=== PATIENT | female | born 1945 | race African-American/Black ===

== ENCOUNTER 2017-09-17 09:37 | Emergency (ER) | payer MEDICARE, MEDICAID ==
[~2017-09-17] VITALS: Ht 162.6 cm; Wt 95.0 kg
[~2017-09-17 09:37] MED LIST: DILT240C3 PO; FURO40TA5 PO; LAMO25TA4 PO; PHEN100C12 PO; PHEN97.22 PO; POTA10TA11 PO
[2017-09-17] MEDS ORDERED: ACETAMINOPHEN 325MG TABLET PO STA (10:09)
[2017-09-17] MEDS ORDERED: FAMOTIDINE 20MG/2ML VIAL IV ONE (10:15)
[2017-09-17 10:33] LABS: EOSINOPHILS % 4.1 % (0.0-5.0); HEMATOCRIT. 41.5 % (36.0-48.0); HEMOGLOBIN. 13.4 g/dL (12.0-16.0); LYMPHOCYTES % 28.9 % (20.0-50.0); MEAN CORPUSCULAR HEMOGLOBIN 28.5 pg (28.0-32.0); MEAN CORPUSCULAR VOLUME 88.7 fL (81.0-99.0); MEAN PLATELET VOLUME 7.3 fl (7.4-10.4); MONOCYTES % 9.3 % (2.0-8.0); NEUTROPHILS % 56.7 % (40.0-76.0); PLATELET 295 x1000/uL (130-400); RED BLOOD CELL COUNT 4.68 mill/uL (4.2-5.4); RED CELL DISTRIBUTION WIDTH 14.2 % (11.6-14.6)
[2017-09-17 10:48] LABS: CARBON DIOXIDE 33 mEq/L (21-32); CHLORIDE 102 mEq/L (98-107)
[2017-09-17] MEDS ORDERED: AZITHROMYCIN 500 MG in DEXT 5% WATER 250 ML IV ONE (11:00)
[2017-09-17] MEDS ORDERED: PHENYTOIN SODIUM 500 MG in SODIUM CHLORIDE 0.9% 50 ML IV NR (11:30)
[2017-09-17 13:00] LABS: CLARITY URINE CLEAR (CLEAR); COLOR URINE YELLOW (YELLOW); KETONES URINE NEGATIVE (NEGATIVE); LEUKOCYTE ESTERASE URINE NEGATIVE (NEGATIVE); NITRITE URINE NEGATIVE (NEGATIVE); OCCULT BLOOD URINE NEGATIVE (NEGATIVE); PROTEIN URINE NEGATIVE (NEGATIVE); SPECIFIC GRAVITY URINE 1.011 (1.005-1.030); UROBILINOGEN URINE 0.2 E.U./dL (0.2-1.0)
[2017-09-17 15:37] VITALS: BP 135/65
== END 2017-09-17 15:38 | disposition home or self-care (01) ==
LOC: ER 10:58
DX: G40.409 Other generalized epilepsy and epileptic syndromes, not intractable, without status epilepticus (principal); G89.29 Other chronic pain; R10.84 Generalized abdominal pain; I10 Essential (primary) hypertension
CPT/HCPCS: 36415; 71010; 80053; 80185; 81003; 83690; 85025; 96365; 96375; 99285; J1165; J3490; J7030

== ENCOUNTER 2018-10-12 12:44 | Inpatient (IN) | payer MEDICARE, MEDICAID ==
[~2018-10-12] VITALS: Ht 162.6 cm; Wt 94.8 kg
[2018-10-12 15:10] LABS: CHLORIDE 102 mEq/L (98-107)
[2018-10-12 15:11] LABS: INR 1.1; PARTIAL THROMBOPLASTIN TIME 27.3 sec (23.4-31.0); PROTHROMBIN TIME 11.2 sec (9.1-11.1)
[2018-10-12 15:12] LABS: BASOPHILS % 0.3 % (0.0-2.0); EOSINOPHILS % 0.8 % (0.0-5.0); HEMATOCRIT. 43.1 % (36.0-48.0); HEMOGLOBIN. 13.9 g/dL (12.0-16.0); LYMPHOCYTES % 23.7 % (20.0-50.0); MEAN CORPUSCULAR HEMOGLOBIN 29.1 pg (28.0-32.0); MEAN CORPUSCULAR VOLUME 90.4 fL (81.0-99.0); MEAN PLATELET VOLUME 8.1 fl (7.4-10.4); MONOCYTES % 7.9 % (2.0-8.0); NEUTROPHILS % 67.3 % (40.0-76.0); PLATELET 201 x1000/uL (130-400); RED BLOOD CELL COUNT 4.77 mill/uL (4.2-5.4); RED CELL DISTRIBUTION WIDTH 14.3 % (11.6-14.6)
[2018-10-12 15:15] LABS: ETHANOL BLOOD < 10 mg/dL
[2018-10-12 15:16] LABS: CLARITY URINE CLEAR (CLEAR); COLOR URINE YELLOW (YELLOW); KETONES URINE NEGATIVE (NEGATIVE); LEUKOCYTE ESTERASE URINE NEGATIVE (NEGATIVE); NITRITE URINE NEGATIVE (NEGATIVE); OCCULT BLOOD URINE NEGATIVE (NEGATIVE); PH URINE 6.5 (4.5-8.0); PROTEIN URINE NEGATIVE (NEGATIVE); SPECIFIC GRAVITY URINE 1.005 (1.005-1.030); UROBILINOGEN URINE 0.2 E.U./dL (0.2-1.0)
[2018-10-12 15:19] LABS: CREATINE KINASE 34 IU/L (26-192)
[2018-10-12] MEDS ORDERED: ACETAMINOPHEN 325MG TABLET PO ONE (15:30)
[2018-10-12 15:31] LABS: *AMPHETAMINES SCREEN URINE NEGATIVE (NEGATIVE); *BARBITURATES SCREEN URINE NEGATIVE (NEGATIVE); *BENZODIAZEPINES SCREEN URINE NEGATIVE (NEGATIVE); *COCAINE SCREEN URINE NEGATIVE (NEGATIVE); METHADONE URINE SCREEN NEGATIVE (NEGATIVE); OPIATES URINE SCREEN PRESUMTIVE POSITIVE (NEGATIVE)
[2018-10-12 15:32] LABS: CANNABINOID URINE SCREEN NEGATIVE (NEGATIVE); PHENCYCLIDINE URINE SCREEN NEGATIVE (NEGATIVE)
[2018-10-12] MEDS ORDERED: PHENYTOIN SODIUM 1,000 MG in SODIUM CHLORIDE 0.9% 100 ML IV ONE (15:45)
[2018-10-12 20:00] VITALS: BP 120/65
[2018-10-12] MEDS ORDERED: CLONIDINE 0.1MG TABLET PO PRN (21:45)
[2018-10-12] MEDS: ACETAMINOPHEN 325MG TABLET PO PRN (22:48)
[2018-10-13] VITALS: BP 119/61
[2018-10-13 07:35] LABS: BASOPHILS % 0.4 % (0.0-2.0); EOSINOPHILS % 1.6 % (0.0-5.0); HEMATOCRIT. 41.4 % (36.0-48.0); HEMOGLOBIN. 13.6 g/dL (12.0-16.0); LYMPHOCYTES % 25.7 % (20.0-50.0); MEAN CORPUSCULAR VOLUME 88.2 fL (81.0-99.0); MEAN PLATELET VOLUME 7.5 fl (7.4-10.4); MONOCYTES % 9.9 % (2.0-8.0); NEUTROPHILS % 62.4 % (40.0-76.0); PLATELET 232 x1000/uL (130-400); RED CELL DISTRIBUTION WIDTH 14.2 % (11.6-14.6)
[2018-10-13 07:48] LABS: CHLORIDE 103 mEq/L (98-107)
[2018-10-13] MEDS ORDERED: PHENYTOIN SODIUM EXTENDED 100MG CAPSULE PO SCH (09:00)
[2018-10-13] MEDS ORDERED: PHENYTOIN SODIUM EXTENDED 100MG CAPSULE PO ONE ×2 (09:00)
[2018-10-13] MEDS: ENOXAPARIN 30MG/0.3ML SYR SUBCUT SCH ×2 (09:33→20:02)
[2018-10-13 09:38] VITALS: BP_SYST 117; BP_SYST 124; BP_SYST 99; BP_DIAS 68; BP_DIAS 70; BP_DIAS 73
[2018-10-13] MEDS ORDERED: PHENOBARBITAL 100MG TABLET PO SCH (10:00)
[2018-10-13 12:14] VITALS: BP 110/68
[2018-10-13] MEDS: PHENOBARBITAL 100MG TABLET PO SCH ×2 (14:38→17:18)
[2018-10-13 16:00] VITALS: BP 118/68
[2018-10-13 20:00] VITALS: BP_SYST 110; BP_SYST 115; BP_SYST 118; BP_DIAS 63; BP_DIAS 72; BP_DIAS 75
[2018-10-13] MEDS: PHENYTOIN SODIUM EXTENDED 100MG CAPSULE PO SCH (20:03)
[2018-10-14] VITALS: BP 129/75
[2018-10-14 04:00] VITALS: BP 116/70
[2018-10-14] MEDS: PANTOPRAZOLE 40MG DR TABLET PO SCH (06:33)
[2018-10-14 07:24] LABS: BASOPHILS % 0.4 % (0.0-2.0); HEMATOCRIT. 42.2 % (36.0-48.0); HEMOGLOBIN. 13.7 g/dL (12.0-16.0); LYMPHOCYTES % 31.6 % (20.0-50.0); MEAN CORPUSCULAR VOLUME 89.4 fL (81.0-99.0); MEAN PLATELET VOLUME 7.9 fl (7.4-10.4); PLATELET 256 x1000/uL (130-400); RED BLOOD CELL COUNT 4.72 mill/uL (4.2-5.4); RED CELL DISTRIBUTION WIDTH 14.4 % (11.6-14.6)
[2018-10-14 08:00] VITALS: BP_SYST 114; BP_SYST 117; BP_SYST 121; BP_SYST 129; BP_DIAS 59; BP_DIAS 63; BP_DIAS 79
[2018-10-14 08:09] LABS: CHLORIDE 103 mEq/L (98-107)
[2018-10-14] MEDS: PHENOBARBITAL 100MG TABLET PO SCH ×3 (08:22→17:21)
[2018-10-14] MEDS: ENOXAPARIN 30MG/0.3ML SYR SUBCUT SCH ×2 (08:24→20:14)
[2018-10-14] MEDS: ACETAMINOPHEN 325MG TABLET PO PRN ×2 (08:26→20:14)
[2018-10-14 16:00] VITALS: BP 133/52
[2018-10-14 20:00] VITALS: BP_SYST 114; BP_SYST 121; BP_SYST 129; BP_DIAS 59; BP_DIAS 79
[2018-10-14] MEDS: PHENYTOIN SODIUM EXTENDED 100MG CAPSULE PO SCH (20:14)
[2018-10-15] VITALS: BP 128/69
[2018-10-15 04:00] VITALS: BP 136/69
[2018-10-15] MEDS: PANTOPRAZOLE 40MG DR TABLET PO SCH (06:11)
[2018-10-15 06:26] LABS: BASOPHILS % 0.6 % (0.0-2.0); HEMATOCRIT. 37.3 % (36.0-48.0); HEMOGLOBIN. 12.3 g/dL (12.0-16.0); LYMPHOCYTES % 26.1 % (20.0-50.0); MEAN CORPUSCULAR HEMOGLOBIN 29.4 pg (28.0-32.0); MEAN CORPUSCULAR VOLUME 89.1 fL (81.0-99.0); MEAN PLATELET VOLUME 7.9 fl (7.4-10.4); MONOCYTES % 8.3 % (2.0-8.0); PLATELET 235 x1000/uL (130-400); RED BLOOD CELL COUNT 4.19 mill/uL (4.2-5.4)
[2018-10-15 06:36] LABS: PHENOBARBITAL 12.4 ug/mL (15.0-40.0)
[2018-10-15 08:00] VITALS: BP 111/58
[2018-10-15] MEDS: PHENOBARBITAL 100MG TABLET PO SCH ×3 (08:29→18:29)
[2018-10-15] MEDS: PHENYTOIN SODIUM EXTENDED 100MG CAPSULE PO SCH ×2 (08:29→18:29)
[2018-10-15] MEDS: ENOXAPARIN 30MG/0.3ML SYR SUBCUT SCH ×2 (08:30→20:44)
[2018-10-15] MEDS ORDERED: MECLIZINE 25MG TABLET PO SCH (10:45)
[2018-10-15 12:00] VITALS: BP 131/77
[2018-10-15] MEDS: ACETAMINOPHEN 325MG TABLET PO PRN (15:37)
[2018-10-15 16:00] VITALS: BP 131/60
[2018-10-15 20:00] VITALS: BP 102/62
[2018-10-16] VITALS: BP_SYST 116; BP_SYST 123; BP_DIAS 61; BP_DIAS 80
[2018-10-16 04:00] VITALS: BP 121/63
[2018-10-16] MEDS: PANTOPRAZOLE 40MG DR TABLET PO SCH ×2 (06:20→08:46)
[2018-10-16 06:48] LABS: BASOPHILS % 0.6 % (0.0-2.0); EOSINOPHILS % 2.5 % (0.0-5.0); HEMATOCRIT. 37.1 % (36.0-48.0); HEMOGLOBIN. 12.2 g/dL (12.0-16.0); LYMPHOCYTES % 32.1 % (20.0-50.0); MEAN CORPUSCULAR HEMOGLOBIN 29.2 pg (28.0-32.0); MEAN CORPUSCULAR VOLUME 88.9 fL (81.0-99.0); MEAN PLATELET VOLUME 7.9 fl (7.4-10.4); MONOCYTES % 9.5 % (2.0-8.0); NEUTROPHILS % 55.3 % (40.0-76.0); PLATELET 231 x1000/uL (130-400); RED BLOOD CELL COUNT 4.17 mill/uL (4.2-5.4)
[2018-10-16 07:15] LABS: CHLORIDE 104 mEq/L (98-107)
[2018-10-16 08:00] VITALS: BP 103/63
[2018-10-16] MEDS ORDERED: ATORVASTATIN CALCIUM 10MG TABLET PO SCH (08:45)
[2018-10-16] MEDS: PHENYTOIN SODIUM EXTENDED 100MG CAPSULE PO SCH (08:46)
[2018-10-16] MEDS: PHENOBARBITAL 100MG TABLET PO SCH (08:46)
[2018-10-16] MEDS: ENOXAPARIN 30MG/0.3ML SYR SUBCUT SCH (08:46)
[2018-10-16 12:00] VITALS: BP 105/52
== END 2018-10-16 12:00 | disposition home health service (06) | DRG 53 ==
LOC: ER 12:48 → EDBEDREQSVC 13:16 → 8WST 16:16 → EDBEDREQ 16:23 → ENRESERV 16:43
PROVIDERS: ADMIT Internal Medicine Geriatric Medicine; ATTEND Internal Medicine Geriatric Medicine
PROC: 4A00X4Z Measurement of Central Nervous Electrical Activity, External Approach (ICD-10-PCS; principal; 2018-10-14)
DX: G40.909 Epilepsy, unspecified, not intractable, without status epilepticus (principal); E44.1 Mild protein-calorie malnutrition; I11.9 Hypertensive heart disease without heart failure; I10 Essential (primary) hypertension; R10.9 Unspecified abdominal pain; M48.00 Spinal stenosis, site unspecified; G31.84 Mild cognitive impairment of uncertain or unknown etiology; Z91.14 Patient's other noncompliance with medication regimen; Z79.899 Other long term (current) drug therapy; Z86.73 Personal history of transient ischemic attack (TIA), and cerebral infarction without residual deficits; Z91.19 Patient's noncompliance with other medical treatment and regimen; Z68.35 Body mass index [BMI] 35.0-35.9, adult
CPT/HCPCS: 36415; 70551; 71045; 80048; 80061; 80184; 80185; 80305; 82550; 82962; 83880; 84443; 84484; 93005; 93306; 93970; 96365; 97116; 97162; 97530; 99285; G0482; J1165; J1650; J7050; J8597

== ENCOUNTER 2019-10-09 17:33 | Inpatient (IN) | payer MEDICARE, MEDICAID ==
[~2019-10-09] VITALS: Ht 215.9 cm; Wt 88.0 kg
[~2019-10-09 17:33] MED LIST changes: -DILT240C3 PO; +DILT240C94 PO; -LAMO25TA4 PO; +LAMO25TA9 PO; -PHEN97.22 PO
[2019-10-09] MEDS ORDERED: ACETAMINOPHEN 325MG TABLET PO STA (23:13)
[2019-10-09] MEDS ORDERED: SODIUM CHLORIDE 0.9% 1,000 ML IV ONE (23:13)
[2019-10-09] MEDS ORDERED: ONDANSETRON HCL 4MG/2ML INJ IV STA (23:13)
[2019-10-09] MEDS ORDERED: PIPERACILLIN/TAZ 3.375G PREMIX 50 ML IV ONE (23:15)
[2019-10-09] MEDS ORDERED: OSELTAMIVIR 75MG CAPSULE PO ONE (23:15)
[2019-10-09] MEDS ORDERED: VANCOMYCIN 1 G PREMIX 200 ML IV ONE (23:15)
[2019-10-10 00:27] LABS: BASOPHILS % 0.6 % (0.0-2.0); EOSINOPHILS % 0.3 % (0.0-5.0); HEMATOCRIT. 34.6 % (36.0-48.0); HEMOGLOBIN. 11.4 g/dL (12.0-16.0); LYMPHOCYTES % 26.7 % (20.0-50.0); MEAN CORPUSCULAR HEMOGLOBIN 29.4 pg (28.0-32.0); MEAN CORPUSCULAR VOLUME 88.8 fL (81.0-99.0); MEAN PLATELET VOLUME 7.4 fl (7.4-10.4); MONOCYTES % 13.9 % (2.0-8.0); NEUTROPHILS % 58.5 % (40.0-76.0); PLATELET 178 x1000/uL (130-400); RED CELL DISTRIBUTION WIDTH 14.2 % (11.6-14.6)
[2019-10-10 00:40] LABS: INR 1.1; PROTHROMBIN TIME 11.1 sec (9.6-11.0)
[2019-10-10 00:41] LABS: CREATINE KINASE 91 IU/L (26-192)
[2019-10-10 00:43] LABS: CREATINE KINASE MB FRACTION < 1.0 ng/mL (0.5-3.6)
[2019-10-10 00:44] LABS: CHLORIDE 103 mEq/L (98-107)
[2019-10-10 01:52] LABS: CLARITY URINE CLEAR (CLEAR); COLOR URINE YELLOW (YELLOW); KETONES URINE NEGATIVE (NEGATIVE); LEUKOCYTE ESTERASE URINE NEGATIVE (NEGATIVE); NITRITE URINE NEGATIVE (NEGATIVE); OCCULT BLOOD URINE NEGATIVE (NEGATIVE); PROTEIN URINE NEGATIVE (NEGATIVE); SPECIFIC GRAVITY URINE 1.013 (1.005-1.030); UROBILINOGEN URINE 0.2 E.U./dL (0.2-1.0)
[2019-10-10] MEDS ORDERED: MAGNESIUM/ALUMINUM HYDROXIDE/SIMETHICONE 30ML UDC PO PRN ×2 (05:30→11:00)
[2019-10-10] MEDS ORDERED: NA PHOS,M-B/NA PHOS,DI-BA ENEMA 118ML PR PRN (11:00)
[2019-10-10] MEDS ORDERED: HYDROCODONE/ACETAMINOPHEN 5/325MG TABLET PO PRN (11:00)
[2019-10-10] MEDS ORDERED: CLONIDINE 0.1MG TABLET PO PRN (11:00)
[2019-10-10] MEDS ORDERED: DOCUSATE SODIUM 100MG CAPSULE PO PRN (11:00)
[2019-10-10] MEDS ORDERED: LORAZEPAM 0.5MG TABLET PO PRN (11:00)
[2019-10-10] MEDS ORDERED: ACETAMINOPHEN 325MG TABLET PO PRN (11:00)
[2019-10-10] MEDS ORDERED: ACETAMINOPHEN 650MG SUPP PR PRN (11:00)
[2019-10-10] MEDS ORDERED: DIPHENHYDRAMINE 50MG/ML VIAL IV PRN (11:00)
[2019-10-10] MEDS ORDERED: GUAIFENESIN 200MG/10ML SUGAR FREE UDC PO PRN (11:00)
[2019-10-10] MEDS ORDERED: ONDANSETRON HCL 4MG/2ML INJ IV PRN (11:00)
[2019-10-10] MEDS ORDERED: IPRATROPIUM/ALBUTEROL 0.5-3(2.5)MG/3ML NEB NEB PRN (11:00)
[2019-10-10] MEDS ORDERED: LAMOTRIGINE 25MG TABLET PO NR (11:30)
[2019-10-10] MEDS ORDERED: LEVOFLOXACIN 500MG PREMIX 100 ML IV SCH (11:30)
[2019-10-10] MEDS ORDERED: POTASSIUM CHLORIDE INJ 40 MEQ in DEXT 5% WATER 250 ML IV SCH (12:00)
[2019-10-10] MEDS: PHENYTOIN SODIUM EXTENDED 100MG CAPSULE PO SCH ×2 (17:00→17:21)
[2019-10-10 19:00] VITALS: BP 137/71
[2019-10-10 20:00] VITALS: BP 147/75
[2019-10-10 22:00] VITALS: BP 138/75
[2019-10-10 22:26] VITALS: BP 148/73
[2019-10-10] MEDS ORDERED: PHEN100T PO (22:26)
[2019-10-11] VITALS (8 sets, daily range): BP systolic 106–154; BP diastolic 56–81
[2019-10-11 06:58] LABS: BASOPHILS % 0.4 % (0.0-2.0); EOSINOPHILS % 1.5 % (0.0-5.0); HEMATOCRIT. 37.6 % (36.0-48.0); HEMOGLOBIN. 12.3 g/dL (12.0-16.0); LYMPHOCYTES % 44.2 % (20.0-50.0); MEAN CORPUSCULAR HEMOGLOBIN 29.2 pg (28.0-32.0); MEAN CORPUSCULAR VOLUME 89.6 fL (81.0-99.0); MEAN PLATELET VOLUME 7.5 fl (7.4-10.4); MONOCYTES % 13.7 % (2.0-8.0); NEUTROPHILS % 40.2 % (40.0-76.0); PLATELET 181 x1000/uL (130-400); RED CELL DISTRIBUTION WIDTH 14.3 % (11.6-14.6)
[2019-10-11 08:00] LABS: CHLORIDE 108 mEq/L (98-107)
[2019-10-11 08:23] LABS: LDL CHOLESTEROL 68 mg/dL (5-100); T4 FREE 1.03 ng/dL (0.76-1.46)
[2019-10-11 08:24] LABS: HDL CHOLESTEROL 45 mg/dL (40-59)
[2019-10-11] MEDS: PHENYTOIN SODIUM EXTENDED 100MG CAPSULE PO SCH ×2 (08:38→16:34)
[2019-10-11 08:44] LABS: *AMPHETAMINES SCREEN URINE NEGATIVE (NEGATIVE); *BARBITURATES SCREEN URINE NEGATIVE (NEGATIVE)
[2019-10-11 08:45] LABS: *BENZODIAZEPINES SCREEN URINE NEGATIVE (NEGATIVE); *COCAINE SCREEN URINE NEGATIVE (NEGATIVE); CANNABINOID URINE SCREEN NEGATIVE (NEGATIVE); METHADONE URINE SCREEN NEGATIVE (NEGATIVE); OPIATES URINE SCREEN NEGATIVE (NEGATIVE); PHENCYCLIDINE URINE SCREEN NEGATIVE (NEGATIVE)
[2019-10-11] MEDS ORDERED: LAMOTRIGINE 25MG TABLET PO SCH (09:00)
[2019-10-11] MEDS ORDERED: LEVOFLOXACIN 500MG PREMIX 100 ML IV SCH (12:00)
[2019-10-12] VITALS (8 sets, daily range): BP systolic 12–145; BP diastolic 61–74
[2019-10-12] MEDS: PHENYTOIN SODIUM EXTENDED 100MG CAPSULE PO SCH ×2 (09:01→17:32)
[2019-10-12] MEDS ORDERED: LEVOFLOXACIN 500MG PREMIX 100 ML IV SCH (11:00)
[2019-10-13] VITALS (8 sets, daily range): BP systolic 94–133; BP diastolic 48–75
[2019-10-13 07:09] LABS: HEMATOCRIT. 37.2 % (36.0-48.0); HEMOGLOBIN. 12.4 g/dL (12.0-16.0); MEAN CORPUSCULAR HEMOGLOBIN 29.6 pg (28.0-32.0); MEAN PLATELET VOLUME 7.7 fl (7.4-10.4); PLATELET 181 x1000/uL (130-400); RED BLOOD CELL COUNT 4.18 mill/uL (4.2-5.4); RED CELL DISTRIBUTION WIDTH 14.3 % (11.6-14.6)
[2019-10-13 07:30] LABS: CHLORIDE 108 mEq/L (98-107)
[2019-10-13 07:36] LABS: PHOSPHORUS 2.8 mg/dL (2.5-4.9)
[2019-10-13] MEDS: PHENYTOIN SODIUM EXTENDED 100MG CAPSULE PO SCH ×2 (08:49→17:45)
[2019-10-13 11:14] LABS: BG BASE EXCESS 3.6 mmol/L (-2.0-2.0); BG CARBOXYHEMOGLOBIN 0.3 % (0.5-1.5); BG DEOXYHEMOGLOBIN 3.8 % (0.0-5.0); BG FRACTION INSPIRED OXYGEN 21; BG HCO3 ACT 27.2 mmol/L (22.0-26.0); BG METHEMOGLOBIN 0.1 % (0.0-1.5); BG OXYGEN SATURATION 96.2 % (92.0-98.5); BG OXYHEMOGLOBIN 95.8 % (94.0-97.0); BG PCO2 37.5 mmHg (35.0-45.0); BG PH 7.478 (7.350-7.450); BG PO2 81.8 mmHg (75.0-100.0); BG SAMPLE SITE RIGHT RADIAL; BG TOTAL HEMOGLOBIN 12.6 g/dL (12.0-18.0); BG VENT MODE ROOM AIR
[2019-10-13] MEDS: LEVOFLOXACIN 500MG TABLET PO SCH (11:32)
[2019-10-13 12:21] LABS: PLATELET ESTIMATE NORMAL
[2019-10-13] MEDS ORDERED: PIPERACILLIN/TAZOBACTAM 3.375 G in DEXT 5% WATER 100 ML IV SCH (17:45)
[2019-10-13] MEDS: PHENOBARBITAL 100MG TABLET PO SCH (20:02)
[2019-10-14] VITALS: BP 131/65
[2019-10-14 04:00] VITALS: BP 128/61
[2019-10-14 07:02] LABS: BASOPHILS % 0.5 % (0.0-2.0); EOSINOPHILS % 2.6 % (0.0-5.0); HEMOGLOBIN. 12.6 g/dL (12.0-16.0); LYMPHOCYTES % 50.2 % (20.0-50.0); MEAN CORPUSCULAR HEMOGLOBIN 29.3 pg (28.0-32.0); MEAN CORPUSCULAR VOLUME 88.2 fL (81.0-99.0); MONOCYTES % 13.7 % (2.0-8.0); PLATELET 193 x1000/uL (130-400)
[2019-10-14 07:37] LABS: CHLORIDE 109 mEq/L (98-107)
[2019-10-14 08:00] VITALS: BP 123/72
[2019-10-14] MEDS: PHENOBARBITAL 100MG TABLET PO SCH ×2 (09:01→17:30)
[2019-10-14] MEDS: PHENYTOIN SODIUM EXTENDED 100MG CAPSULE PO SCH ×2 (09:01→17:29)
[2019-10-14] MEDS: LEVOFLOXACIN 500MG TABLET PO SCH (11:42)
[2019-10-14 12:00] VITALS: BP 136/70
[2019-10-14] MEDS ORDERED: LEVO500T2 MT (14:31)
[2019-10-14] MEDS ORDERED: ALBU90AE INH (14:31)
[2019-10-14 16:00] VITALS: BP 131/75
== END 2019-10-14 18:51 | disposition home health service (06) | DRG 720 ==
LOC: ER 17:33 → 3WST 10-10 01:00 → EDBEDREQSVC 10-10 01:03 → EDBEDREQTM 10-10 01:03 → EDBEDREQDT 10-10 01:03 → EDBEDREQ 10-10 01:03 → SUPCPDRO 10-10 10:46 → ENRESERV 10-10 16:17 → 7WST 10-13 23:40
PROVIDERS: ADMIT Internal Medicine; ATTEND Internal Medicine
DX: A41.9 Sepsis, unspecified organism (principal); J18.9 Pneumonia, unspecified organism; E44.0 Moderate protein-calorie malnutrition; I50.32 Chronic diastolic (congestive) heart failure; N13.30 Unspecified hydronephrosis; D64.9 Anemia, unspecified; G40.909 Epilepsy, unspecified, not intractable, without status epilepticus; E87.6 Hypokalemia; I10 Essential (primary) hypertension; Z86.73 Personal history of transient ischemic attack (TIA), and cerebral infarction without residual deficits; Z79.899 Other long term (current) drug therapy
CPT/HCPCS: 36415; 36600; 71045; 71250; 76770; 80048; 80053; 80061; 80185; 80305; 81003; 82375; 82550; 82553; 82805; 83605; 83735; 84100; 84145; 84439; 84443; 84484; 85025; 87804; 93005; 93306; 93970; 97116; 97162; 99285; J1956; J2405; J2543; J3370; J3480; J7030; J7060

== ENCOUNTER 2020-02-11 13:18 | Inpatient (IN) | payer MEDICARE, MEDICAID ==
[~2020-02-11] VITALS: Ht 167.6 cm; Wt 77.1 kg
[~2020-02-11 13:18] MED LIST changes: +ALBU90AE INH; -FURO40TA5 PO; +LEVO500T2 MT; +PHEN100T PO; -POTA10TA11 PO
[2020-02-11 15:14] LABS: BASOPHILS % 0.4 % (0.0-2.0); EOSINOPHILS % 0.8 % (0.0-5.0); HEMATOCRIT. 40.3 % (36.0-48.0); HEMOGLOBIN. 13.9 g/dL (12.0-16.0); LYMPHOCYTES % 19.1 % (20.0-50.0); MEAN CORPUSCULAR VOLUME 89.9 fL (81.0-99.0); MEAN PLATELET VOLUME 7.3 fl (7.4-10.4); NEUTROPHILS % 70.7 % (40.0-76.0); PLATELET 205 x1000/uL (130-400); RED BLOOD CELL COUNT 4.48 mill/uL (4.2-5.4); RED CELL DISTRIBUTION WIDTH 14.8 % (11.6-14.6)
[2020-02-11 15:17] LABS: CHLORIDE 107 mEq/L (98-107)
[2020-02-11 15:21] LABS: ETHANOL BLOOD 10 mg/dL
[2020-02-11 15:51] LABS: CLARITY URINE CLEAR (CLEAR); COLOR URINE YELLOW (YELLOW); KETONES URINE NEGATIVE (NEGATIVE); LEUKOCYTE ESTERASE URINE TRACE (NEGATIVE); NITRITE URINE NEGATIVE (NEGATIVE); OCCULT BLOOD URINE NEGATIVE (NEGATIVE); PROTEIN URINE NEGATIVE (NEGATIVE); SPECIFIC GRAVITY URINE 1.008 (1.005-1.030); UROBILINOGEN URINE 0.2 E.U./dL (0.2-1.0)
[2020-02-11 16:03] LABS: *AMPHETAMINES SCREEN URINE NEGATIVE (NEGATIVE); *BARBITURATES SCREEN URINE NEGATIVE (NEGATIVE); *BENZODIAZEPINES SCREEN URINE NEGATIVE (NEGATIVE); *COCAINE SCREEN URINE NEGATIVE (NEGATIVE)
[2020-02-11 16:05] LABS: CANNABINOID URINE SCREEN NEGATIVE (NEGATIVE); METHADONE URINE SCREEN NEGATIVE (NEGATIVE); OPIATES URINE SCREEN NEGATIVE (NEGATIVE); PHENCYCLIDINE URINE SCREEN NEGATIVE (NEGATIVE)
[2020-02-11] MEDS ORDERED: CEFTRIAXONE 1 G PREMIX 50 ML IV ONE (19:00)
[2020-02-11] MEDS ORDERED: CLONIDINE 0.1MG TABLET PO PRN (19:15)
[2020-02-11] MEDS ORDERED: HYDRALAZINE 20MG/ML VIAL IV PRN (19:15)
[2020-02-11] MEDS ORDERED: ONDANSETRON HCL 4MG/2ML INJ IV PRN (19:15)
[2020-02-11] MEDS ORDERED: LORAZEPAM 2MG/ML CPJ IV PRN (19:15)
[2020-02-11] MEDS ORDERED: ACETAMINOPHEN 500MG TABLET PO ONE (19:15)
[2020-02-11] MEDS ORDERED: PHENOBARBITAL 100MG TABLET PO SCH (20:15)
[2020-02-11] MEDS: PHENYTOIN SODIUM EXTENDED 100MG CAPSULE PO SCH (20:23)
[2020-02-12] VITALS: BP 106/53
[2020-02-12 00:35] VITALS: BP 142/81
[2020-02-12 08:00] VITALS: BP 118/63
[2020-02-12 08:58] LABS: BASOPHILS % 0.5 % (0.0-2.0); EOSINOPHILS % 2.1 % (0.0-5.0); HEMATOCRIT. 39.1 % (36.0-48.0); LYMPHOCYTES % 26.9 % (20.0-50.0); MEAN CORPUSCULAR HEMOGLOBIN 30.2 pg (28.0-32.0); MEAN CORPUSCULAR VOLUME 90.4 fL (81.0-99.0); MEAN PLATELET VOLUME 8.1 fl (7.4-10.4); NEUTROPHILS % 60.5 % (40.0-76.0); PLATELET 216 x1000/uL (130-400); RED BLOOD CELL COUNT 4.32 mill/uL (4.2-5.4); RED CELL DISTRIBUTION WIDTH 14.8 % (11.6-14.6)
[2020-02-12] MEDS ORDERED: PHENOBARBITAL 100MG TABLET PO SCH (09:00)
[2020-02-12] MEDS ORDERED: LAMOTRIGINE 25MG TABLET PO SCH (09:00)
[2020-02-12 09:01] LABS: CHLORIDE 107 mEq/L (98-107)
[2020-02-12] MEDS: PHENYTOIN SODIUM EXTENDED 100MG CAPSULE PO SCH ×2 (09:09→17:21)
[2020-02-12] MEDS: ACETAMINOPHEN 325MG TABLET PO PRN ×2 (09:09→15:00)
[2020-02-12] MEDS: HEPARIN 5000 UNITS/ML VIAL SUBCUT SCH ×2 (09:11→20:57)
[2020-02-12] MEDS: DILTIAZEM HCL 120MG CAPSULE CD 24HR PO SCH (09:13)
[2020-02-12 12:00] VITALS: BP 111/61
[2020-02-12 16:00] VITALS: BP 129/68
[2020-02-12] MEDS: LAMOTRIGINE 25MG TABLET PO SCH (17:22)
[2020-02-12 20:00] VITALS: BP 111/59
[2020-02-13] VITALS: BP 112/59
[2020-02-13 04:00] VITALS: BP 108/51
[2020-02-13 08:00] VITALS: BP 115/60
[2020-02-13 08:16] LABS: BASOPHILS % 0.6 % (0.0-2.0); EOSINOPHILS % 3.8 % (0.0-5.0); HEMATOCRIT. 39.3 % (36.0-48.0); HEMOGLOBIN. 13.2 g/dL (12.0-16.0); LYMPHOCYTES % 37.2 % (20.0-50.0); MEAN CORPUSCULAR HEMOGLOBIN 30.3 pg (28.0-32.0); MEAN CORPUSCULAR VOLUME 90.2 fL (81.0-99.0); MEAN PLATELET VOLUME 8.2 fl (7.4-10.4); MONOCYTES % 9.7 % (2.0-8.0); NEUTROPHILS % 48.7 % (40.0-76.0); PLATELET 210 x1000/uL (130-400); RED BLOOD CELL COUNT 4.36 mill/uL (4.2-5.4); RED CELL DISTRIBUTION WIDTH 14.6 % (11.6-14.6)
[2020-02-13 08:18] LABS: CHLORIDE 108 mEq/L (98-107)
[2020-02-13] MEDS: DILTIAZEM HCL 120MG CAPSULE CD 24HR PO SCH (08:53)
[2020-02-13] MEDS: PHENOBARBITAL 100MG TABLET PO SCH (08:54)
[2020-02-13] MEDS: LAMOTRIGINE 25MG TABLET PO SCH ×2 (08:54→17:21)
[2020-02-13] MEDS: HEPARIN 5000 UNITS/ML VIAL SUBCUT SCH ×2 (08:55→20:04)
[2020-02-13] MEDS: PHENYTOIN SODIUM EXTENDED 100MG CAPSULE PO SCH ×2 (08:55→17:21)
[2020-02-13 12:00] VITALS: BP 110/61
[2020-02-13 16:00] VITALS: BP 112/59
[2020-02-13 20:00] VITALS: BP 131/76
[2020-02-13 21:11] LABS: VITAMIN B12 SERUM 351 pg/mL (211-911)
[2020-02-14] VITALS: BP 130/65
[2020-02-14 04:00] VITALS: BP 118/70
[2020-02-14 08:00] VITALS: BP 133/73
[2020-02-14] MEDS: PHENOBARBITAL 100MG TABLET PO SCH (08:29)
[2020-02-14] MEDS: HEPARIN 5000 UNITS/ML VIAL SUBCUT SCH (08:29)
[2020-02-14] MEDS: LAMOTRIGINE 25MG TABLET PO SCH (08:30)
[2020-02-14] MEDS: PHENYTOIN SODIUM EXTENDED 100MG CAPSULE PO SCH (08:30)
[2020-02-14] MEDS: DILTIAZEM HCL 120MG CAPSULE CD 24HR PO SCH (08:30)
[2020-02-14] MEDS ORDERED: DILT240C94 PO (10:01)
[2020-02-14] MEDS ORDERED: PHEN100T PO (10:01)
[2020-02-14] MEDS ORDERED: LAM25 PO (10:01)
[2020-02-14] MEDS ORDERED: PHEN100C12 PO (10:01)
[2020-02-14 10:25] VITALS: BP 111/69
== END 2020-02-14 11:21 | disposition home health service (06) | DRG 53 ==
LOC: ER 13:40 → EDBEDREQ 14:36 → 5WST 18:55 → EDBEDREQTM 18:59 → EDBEDREQ 18:59 → ENRESERV 22:43 → 5WST 02-12 03:12
PROVIDERS: ADMIT Internal Medicine; ATTEND Internal Medicine
DX: G40.909 Epilepsy, unspecified, not intractable, without status epilepticus (principal); I11.0 Hypertensive heart disease with heart failure; I50.9 Heart failure, unspecified; N39.0 Urinary tract infection, site not specified; Z79.899 Other long term (current) drug therapy; Z91.14 Patient's other noncompliance with medication regimen; Z79.51 Long term (current) use of inhaled steroids; Z79.1 Long term (current) use of non-steroidal anti-inflammatories (NSAID); Z79.2 Long term (current) use of antibiotics
CPT/HCPCS: 36415; 71045; 80053; 80185; 80305; 80320; 81003; 82542; 82607; 83735; 83880; 84443; 84484; 85025; 93005; 93306; 93880; 97162; 97535; 99285; J0696; J1644; G0480

== ENCOUNTER 2021-08-03 09:15 | Inpatient (IN) | payer MEDICARE, MEDICAID ==
[~2021-08-03] VITALS: Ht 157.5 cm; Wt 99.1 kg
[~2021-08-03 09:15] MED LIST changes: +LAM25 PO; -LAMO25TA9 PO; -LEVO500T2 MT
[2021-08-03 12:03] LABS: CLARITY URINE CLEAR (CLEAR); COLOR URINE YELLOW (YELLOW); KETONES URINE NEGATIVE (NEGATIVE); LEUKOCYTE ESTERASE URINE TRACE (NEGATIVE); NITRITE URINE NEGATIVE (NEGATIVE); OCCULT BLOOD URINE NEGATIVE (NEGATIVE); PROTEIN URINE NEGATIVE (NEGATIVE); SPECIFIC GRAVITY URINE 1.012 (1.005-1.030); UROBILINOGEN URINE 0.2 E.U./dL (0.2-1.0)
[2021-08-03] MEDS ORDERED: ACETAMINOPHEN 325MG TABLET PO PRN (13:45)
[2021-08-03] MEDS ORDERED: NA PHOS,M-B/NA PHOS,DI-BA ENEMA 118ML PR PRN (13:45)
[2021-08-03] MEDS ORDERED: DIPHENHYDRAMINE 50MG/ML VIAL IV PRN (13:45)
[2021-08-03] MEDS ORDERED: GUAIFENESIN 200MG/10ML SUGAR FREE UDC PO PRN (13:45)
[2021-08-03] MEDS ORDERED: ONDANSETRON HCL 4MG/2ML INJ IV PRN (13:45)
[2021-08-03] MEDS ORDERED: HYDROCODONE/ACETAMINOPHEN 5/325MG TABLET PO PRN (13:45)
[2021-08-03] MEDS ORDERED: ACETAMINOPHEN 650MG SUPP PR PRN (13:45)
[2021-08-03] MEDS ORDERED: DOCUSATE SODIUM 100MG CAPSULE PO PRN (13:45)
[2021-08-03] MEDS ORDERED: IPRATROPIUM/ALBUTEROL 0.5-3(2.5)MG/3ML NEB NEB PRN (13:45)
[2021-08-03] MEDS ORDERED: MAGNESIUM/ALUMINUM HYDROXIDE/SIMETHICONE 30ML UDC PO PRN (13:45)
[2021-08-03] MEDS ORDERED: CLONIDINE 0.1MG TABLET PO PRN (13:45)
[2021-08-03] MEDS ORDERED: LORAZEPAM 0.5MG TABLET PO PRN (13:45)
[2021-08-03 13:50] LABS: BASOPHILS % 0.5 % (0.0-2.0); EOSINOPHILS % 1.9 % (0.0-5.0); HEMATOCRIT. 42.7 % (36.0-48.0); HEMOGLOBIN. 13.9 g/dL (12.0-16.0); LYMPHOCYTES % 29.1 % (20.0-50.0); MEAN CORPUSCULAR HEMOGLOBIN 29.8 pg (28.0-32.0); MEAN CORPUSCULAR VOLUME 91.7 fL (81.0-99.0); MEAN PLATELET VOLUME 8.6 fl (7.4-10.4); MONOCYTES % 8.7 % (2.0-8.0); NEUTROPHILS % 59.8 % (40.0-76.0); PLATELET 220 x1000/uL (130-400); RED BLOOD CELL COUNT 4.65 mill/uL (4.2-5.4); RED CELL DISTRIBUTION WIDTH 14.8 % (11.6-14.6)
[2021-08-03] MEDS ORDERED: CEFTRIAXONE 1 G PREMIX 50 ML IV SCH (14:30)
[2021-08-03] MEDS: PHENOBARBITAL 100MG TABLET PO SCH (16:06)
[2021-08-03] MEDS: LAMOTRIGINE 25MG TABLET PO SCH ×2 (16:06→21:28)
[2021-08-03] MEDS: PHENYTOIN SODIUM EXTENDED 100MG CAPSULE PO SCH ×2 (16:06→21:28)
[2021-08-03 18:03] LABS: CHLORIDE 108 mEq/L (98-107)
[2021-08-03 18:14] LABS: PHENOBARBITAL 16.6 ug/mL (15.0-40.0)
[2021-08-03 19:09] LABS: CREATINE KINASE 110 IU/L (26-192)
[2021-08-03 19:10] LABS: CREATINE KINASE MB FRACTION 1.2 ng/mL (0.5-3.6)
[2021-08-03] MEDS: FAMOTIDINE 20MG TABLET PO SCH (21:28)
[2021-08-03] MEDS ORDERED: NALOXONE HCL 0.4MG/ML VIAL IV PRN (21:30)
[2021-08-03 22:30] VITALS: BP 136/60
[2021-08-04] VITALS: BP 126/68
[2021-08-04 01:52] LABS: CREATINE KINASE 111 IU/L (26-192)
[2021-08-04 01:54] LABS: CREATINE KINASE MB FRACTION < 1.0 ng/mL (0.5-3.6)
[2021-08-04 04:00] VITALS: BP 138/66
[2021-08-04 08:00] VITALS: BP 118/66
[2021-08-04] MEDS: LAMOTRIGINE 25MG TABLET PO SCH ×2 (08:45→21:54)
[2021-08-04] MEDS: PHENYTOIN SODIUM EXTENDED 100MG CAPSULE PO SCH (08:45)
[2021-08-04 09:48] LABS: T4 FREE 1.12 ng/dL (0.76-1.46)
[2021-08-04] MEDS: PHENOBARBITAL 100MG TABLET PO SCH (10:59)
[2021-08-04 12:00] VITALS: BP 110/53
[2021-08-04] MEDS: CEFTRIAXONE 1,000 MG in DEXTROSE 5% WATER 50 ML IV SCH (12:55)
[2021-08-04 16:00] VITALS: BP 111/54
[2021-08-04 17:39] LABS: CHLORIDE 107 mEq/L (98-107)
[2021-08-04 17:46] LABS: BASOPHILS % 0.8 % (0.0-2.0); EOSINOPHILS % 3.4 % (0.0-5.0); HEMATOCRIT. 43.5 % (36.0-48.0); LYMPHOCYTES % 34.4 % (20.0-50.0); MEAN CORPUSCULAR HEMOGLOBIN 29.3 pg (28.0-32.0); MEAN CORPUSCULAR VOLUME 91.2 fL (81.0-99.0); MONOCYTES % 12.8 % (2.0-8.0); NEUTROPHILS % 48.6 % (40.0-76.0); RED BLOOD CELL COUNT 4.77 mill/uL (4.2-5.4); RED CELL DISTRIBUTION WIDTH 14.2 % (11.6-14.6)
[2021-08-04] MEDS ORDERED: LEVETIRACETAM 500 MG in SODIUM CHLORIDE 0.9% 100 ML IV SCH (18:00)
[2021-08-04 20:00] VITALS: BP 110/61
[2021-08-04] MEDS: FAMOTIDINE 20MG TABLET PO SCH (21:53)
[2021-08-04] MEDS: ENOXAPARIN 30MG/0.3ML SYR SUBCUT SCH (21:56)
[2021-08-04] MEDS: LEVETIRACETAM 500MG PREMIX 100 ML IV SCH (21:57)
[2021-08-05] VITALS: BP 128/66
[2021-08-05 04:00] VITALS: BP 130/68
[2021-08-05 07:29] LABS: BASOPHILS % 0.7 % (0.0-2.0); EOSINOPHILS % 4.3 % (0.0-5.0); HEMATOCRIT. 37.4 % (36.0-48.0); HEMOGLOBIN. 12.2 g/dL (12.0-16.0); LYMPHOCYTES % 33.2 % (20.0-50.0); MEAN CORPUSCULAR HEMOGLOBIN 29.3 pg (28.0-32.0); MEAN CORPUSCULAR VOLUME 89.7 fL (81.0-99.0); MONOCYTES % 11.7 % (2.0-8.0); NEUTROPHILS % 50.1 % (40.0-76.0); PLATELET 192 x1000/uL (130-400); RED BLOOD CELL COUNT 4.17 mill/uL (4.2-5.4); RED CELL DISTRIBUTION WIDTH 14.3 % (11.6-14.6)
[2021-08-05 08:00] VITALS: BP 131/84
[2021-08-05 08:16] LABS: CHLORIDE 107 mEq/L (98-107)
[2021-08-05] MEDS: ENOXAPARIN 30MG/0.3ML SYR SUBCUT SCH (09:00)
[2021-08-05] MEDS: LEVETIRACETAM 500MG PREMIX 100 ML IV SCH (09:24)
[2021-08-05] MEDS: LAMOTRIGINE 25MG TABLET PO SCH (09:24)
[2021-08-05 12:00] VITALS: BP 130/67
[2021-08-05] MEDS: CEFTRIAXONE 1,000 MG in DEXTROSE 5% WATER 50 ML IV SCH (14:03)
[2021-08-05] MEDS ORDERED: KEPP500 MT (15:13)
[2021-08-05] MEDS ORDERED: LAM25 PO (15:13)
[2021-08-05 15:51] VITALS: BP 130/67
== END 2021-08-05 17:15 | disposition home or self-care (01) | DRG 53 ==
LOC: ER 09:15 → 8WST 13:33 → EDBEDREQTM 13:35 → EDBEDREQ 13:35 → ENRESERV 20:34
PROVIDERS: ADMIT Internal Medicine; ATTEND Internal Medicine
DX: G40.919 Epilepsy, unspecified, intractable, without status epilepticus (principal); I33.0 Acute and subacute infective endocarditis; G90.8 Other disorders of autonomic nervous system; I50.9 Heart failure, unspecified; I11.0 Hypertensive heart disease with heart failure; I10 Essential (primary) hypertension; R55 Syncope and collapse; M19.90 Unspecified osteoarthritis, unspecified site; Z79.899 Other long term (current) drug therapy
CPT/HCPCS: 36415; 70551; 71045; 80048; 80053; 80061; 80184; 80185; 81003; 82550; 82553; 84439; 84443; 84484; 85025; 93005; 93306; 93923; 93970; 97161; 99285; C1893; J0696; J1650; J1953; J7060

== ENCOUNTER 2021-10-17 13:25 | Emergency (ER) | payer MEDICARE, MEDICAID ==
[~2021-10-17] VITALS: Ht 165.1 cm; Wt 100.0 kg
[~2021-10-17 13:25] MED LIST changes: +KEPP500 MT; -PHEN100C12 PO; -PHEN100T PO
[2021-10-17 14:06] VITALS: BP 153/85
[2021-10-17] MEDS ORDERED: LEVETIRACETAM 1000MG PREMIX 100 ML IV ONE (21:30)
[2021-10-17 22:04] LABS: BASOPHILS % 0.3 % (0.0-2.0); EOSINOPHILS % 1.1 % (0.0-5.0); HEMATOCRIT. 41.6 % (36.0-48.0); HEMOGLOBIN. 13.6 g/dL (12.0-16.0); LYMPHOCYTES % 33.1 % (20.0-50.0); MEAN CORPUSCULAR HEMOGLOBIN 28.8 pg (28.0-32.0); MEAN CORPUSCULAR VOLUME 87.9 fL (81.0-99.0); MEAN PLATELET VOLUME 7.6 fl (7.4-10.4); MONOCYTES % 13.2 % (2.0-8.0); NEUTROPHILS % 52.3 % (40.0-76.0); PLATELET 223 x1000/uL (130-400); RED BLOOD CELL COUNT 4.73 mill/uL (4.2-5.4); RED CELL DISTRIBUTION WIDTH 14.1 % (11.6-14.6)
[2021-10-17 22:15] LABS: CHLORIDE 106 mEq/L (98-107)
[2021-10-17 22:19] LABS: ETHANOL BLOOD < 10 mg/dL
[2021-10-17] MEDS ORDERED: BACITRACIN 15GM TUBE TOP ONE (23:30)
[2021-10-17] MEDS ORDERED: BACITRACIN ZINC OINT UDPKT TOP ONE (23:30)
[2021-10-18] MEDS ORDERED: BO1 TP (00:34)
== END 2021-10-18 00:49 | disposition home or self-care (01) ==
LOC: ER 13:25
DX: T24.212A Burn of second degree of left thigh, initial encounter (principal); T24.211A Burn of second degree of right thigh, initial encounter; T31.0 Burns involving less than 10% of body surface; X10.0XXA Contact with hot drinks, initial encounter; Y93.89 Activity, other specified; Y92.89 Other specified places as the place of occurrence of the external cause; Y99.8 Other external cause status; I50.9 Heart failure, unspecified; F03.90 Unspecified dementia, unspecified severity, without behavioral disturbance, psychotic disturbance, mood disturbance, and anxiety
CPT/HCPCS: 36415; 80053; 80320; 85025; 93005; 99284; G0480